=== PATIENT | female | born 1955 | race Caucasian/White ===

== ENCOUNTER 2024-05-24 12:46 | Outpatient (POV) | payer MEDICARE, SELFPAY ==
[2024-05-24 13:05] VITALS: BP 153/94; PULSE 95; RESP 18; O2SAT 98; BMI 32.5
--- NOTE | 2024-05-24 13:15 | A.OFFVIS_ITS ---
HPI Data of Consult Patient: new to practice Consult date: 05/24/24 Requesting Physician: Jo Alicea APRN Primary Care Provider: Joseph Almendarez MD Consult Narrative Reason for consult: Low back pain, leg pain History of present illness: She states that the Percocet medication really does not seem to work at all. Ms. Carmen is a 68 year old female who presents today as a new patient. She is a referral from [facility]. Today she rates her pain a 8 out of 10. Patient states that she has chronic back pain with radicular symptoms into her legs. Patient states this is been going on for years and progressively worsening. Patient describes it as an aching, throbbing sensation with numbness and tingling. Patient does state that she has had 3 prior knee replacements and that she has chronic pain in these joints as well. Patient states that she has done injection therapy for 15 to 20 years with significant improvement however now they seem like they are not lasting as long. Patient states that she just has chronic pain on a day-to-day basis that does interfere with her ability perf orm activities of daily living such as cooking and cleaning. Patient states the pain is severe and debilitating. Patient is interested in trying a pump trial. Patient states that she did have 1 about 6 years ago and it did seem to help but yet very short lived. Patient states that she did not have any reactions to that medication which was fentanyl however with fentanyl patches she was very si ck to her stomach. Patient has tried and failed conservative therapy including continued at home stretching exercise for longer than 12 weeks. Patient is currently managed with gabapentin 300 mg twice a day and Percocet 10 mg 4 times a day from outside providers. She states that the pain medication just is not really doing much of anything. Her Matt has been reviewed. CC: Jo Alicea APRN [facility] Disclaimer: The information contained in this section may have been updated after the patient was seen, as this information can be updated by other users. Medical History (Updated 05/24/24 @ 14:18 by Jo Alicea APRN) Diverticulitis GERD (gastroesophageal reflux disease) Anemia Asthma HTN (hypertension) Osteoporosis DDD (degenerative disc disease), lumbar Surgical History (Updated 05/24/24 @ 13:11 by Casi Delgado RN) Hx of total knee arthroplasty History of total hip replacement Hx of cholecystectomy H/O: hysterectomy Family History (Updated 05/24/24 @ 13:09 by Casi Delgado RN) Other Arthritis Cancer Diabetes Family history of thromboembolic disease Heart disease Hypertension Osteoporosis Rheumatoid arthritis Social History (Updated 05/24/24 @ 13:43 by Casi Delgado RN) Smoking Status: Never smoker alcohol intake: never current occupational status: other Travel in the last 8 weeks: None Review of Systems Review of Systems Review of systems:: pertinent systems reviewed and negative unless documented below Review of systems (narrative): Review of Systems: General: No recent weight changes, no fever, no sleep disturbances Respiratory: No cough, no shortness of air, no recurring pulmonary infections Cardiovascular/peripheral vascular: No chest pain, no palpitations, no edema, no shortness of breath Gastrointestinal: No new onset incontinence, normal bowel movements reported Genitourinary: No new onset incontinence Musculoskeletal: Low back pain, leg pain, bilateral knee pain Psychiatric: [Normal mood/affect] Neurological: [Denies weakness in extremities], [denies balance issues] Meds Home Medications and Allergies Home Medications ?Medication ?Instructions ?Recorded ?Confirmed ?Type baclofen 10 mg tablet 10 mg PO DAILY Pain 05/24/24 05/24/24 History gabapentin 300 mg capsule 300 mg PO DAILY Pain 05/24/24 05/24/24 History losartan 100 mg tablet 100 mg PO DAILY BLOOD PRESSURE 05/24/24 05/24/24 History meloxicam 7.5 mg tablet 7.5 mg PO BID ARHTIRITIS 05/24/24 05/24/24 History oxycodone-acetaminophen 10 mg-325 1 tab PO QID Pain 05/24/24 05/24/24 History mg tablet New Prescriptions to Start Prescriptions: Allergies Allergy/AdvReac Type Severity Reaction Status Date / Time acetaminophen [From Lortab] Allergy Hives Verified 05/24/24 13:12 erythromycin base Allergy Hives Verified 05/24/24 13:12 hydrocodone [From Lortab] Allergy Hives Verified 05/24/24 13:12 NSAIDS (Non-Steroidal Allergy Hives Verified 05/24/24 13:12 Anti-Inflamma Penicillins Allergy Hives Verified 05/24/24 13:12 Objective Narrative: Physical Exam: General: Alert and oriented x3, no acute distress, pleasant and cooperative Lungs: Respirations even and unlabored, symmetrical chest expansion Eyes: PERRL Musculoskeletal: Flexion and extension of lumbar [spine] somewhat guarded secondary to pain, [antalgic gait noted] Neurological: Speech clear, no gross sensory deficit Assessment and Plan *Assessment and plan (1) Lumbar radiculopathy: Status: Acute Category: Medical Code(s): M54.16 - Radiculopathy, lumbar region (2) Bilateral knee pain: Status: Acute Category: Medical Code(s): M25.561 - Pain in right knee; M25.562 - Pain in left knee (3) DDD (degenerative disc disease), lumbar: Status: Acute Category: Medical Code(s): M51.369 - Other intervertebral disc degeneration, lumbar region without mention of lumbar back pain or lower extremity pain Plan Patient continues to experience significant pain throughout her back as well as radicular symptoms. Patient did have limited range of motion of her lumbar spine. Patient has tried and failed conservative therapy including oral medications, heat and ice, topicals, physical therapy, continued at home stretching exercise for longer than 12 weeks as well as injection therapy. I did go over risk and benefits of the intrathecal pain pump and discussed that I do believe she would benefit from a intrathecal pain pump trial. Patient does states she would like to proceed forward with this plan of care. Patient was counseled that I will order her psychological evaluation and if she is deemed an appropriate candidate we will proceed forward with the pump trial at a later date. I will order the patient a compounded cream. Patient will return to clinic in 1 month for reevaluation of symptoms and plan of care. Patient has been instructed to contact the clinic with any concerns before the next appointment. Dr. Lao has reviewed this note and agrees with this plan of care. This note was dictated using voice recognition software and make contain errors or omissions. All injections are used with Lidocaine or Bupivacaine and Depo Medrol.
== END 2024-05-24 23:59 | disposition home or self-care (01) ==
LOC: SC.PAIN 12:52
PROVIDERS: PCP Family Medicine; Visit Provider Nurse Practitioner Family
DX: M25.561 Pain in right knee; M25.562 Pain in left knee; M51.16 Intervertebral disc disorders with radiculopathy, lumbar region; Z96.659 Presence of unspecified artificial knee joint; Z73.89 Other problems related to life management difficulty; Z96.649 Presence of unspecified artificial hip joint
CPT/HCPCS: 99202; G0463

== ENCOUNTER 2024-09-04 14:11 | Outpatient (POV) | payer MEDICARE, SELFPAY ==
--- NOTE | 2024-09-04 14:27 | EXP.PAIN.SOA ---
[facility] Disclaimer: The information contained in this section may have been updated after the patient was seen, as this information can be updated by other users. Medical History (Updated 09/04/24 @ 14:29 by Jo Alicea APRN) Diverticulitis GERD (gastroesophageal reflux disease) Anemia Asthma HTN (hypertension) Osteoporosis DDD (degenerative disc disease), lumbar Surgical History (Updated 05/24/24 @ 13:11 by Casi Delgado RN) Hx of total knee arthroplasty History of total hip replacement Hx of cholecystectomy H/O: hysterectomy Family History (Updated 05/24/24 @ 13:09 by Casi Delgado RN) Other Arthritis Cancer Diabetes Family history of thromboembolic disease Heart disease Hypertension Osteoporosis Rheumatoid arthritis Social History (Updated 05/24/24 @ 13:43 by Casi Delgado RN) Smoking Status: Never smoker alcohol intake: never current occupational status: other Travel in the last 8 weeks: None Have you lived/traveled outside [place] in past 30 days?: No Contact w/someone who lives/traveled outside [place] past 30 days?: No Exposure to someone with infectious disease in past 14 days?: No Do you have a fever (greater than 100.4 F or 38 C)?: No Have you tested positive for COVID-19: No Exposed to someone with COVID-19 in past 14 days?: No Do you have a sore throat?: No Do you have a cough?: No Do you have any weakness?: No Do you have any diarrhea?: No Are you experiencing any unusual bleeding?: No Do you have any muscle aches/pain?: No Do you have any abdominal pain?: No Are you experiencing loss of taste or smell?: No PM Subjective & Objective Subjective Subjective:: Patient is a pleasant 68-year-old female who presents today for follow-up of psychological evaluation. She does rate her pain today a 10 out of 10. She states she still has the chronic back pain that does radiate into her legs. She states that nothing seems to make any difference. She states that this has been going on for longer than 20 years and continues to worsen on a day-to-day basis. Patient states the pain is severe and debilitating. She has tried and failed conservative therapy including oral medications, heat and ice, topicals, physical therapy, at home stretching exercise for longer than 12 weeks as well as multiple injections. She has been prescribed anything from gabapentin, Percocet and fentanyl. She states nothing seems to do anything. Patient does state today that she would like to proceed forward with the pain pump trial. Her Matt has been reviewed and is appropriate. Review of Systems: General: No recent weight changes, no fever, no sleep disturbances Respiratory: No cough, no shortness of air, no recurring pulmonary infections Cardiovascular/peripheral vascular: No chest pain, no palpitations, no edema, no shortness of breath Gastrointestinal: No new onset incontinence, normal bowel movements reported Genitourinary: No new onset incontinence Musculoskeletal: Chronic back pain Psychiatric: [Normal mood/affect] Neurological: [Denies weakness in extremities], [denies balance issues] Pain at rest (0-10 scale): 10 Objective Objective:: Physical Exam: General: Alert and oriented x3, no acute distress, pleasant and cooperative Lungs: Respirations even and unlabored, symmetrical chest expansion Eyes: PERRL Musculoskeletal: Flexion and extension of lumbar [spine] somewhat guarded secondary to pain, [antalgic gait noted] Neurological: Speech clear, no gross sensory deficit Has patient had previous pain injection?: No Conservative treatment options previously tried: Home exercise plan Length of treatment: Longer than 12 weeks, Physical Therapy Length of treatment: Longer than 6 weeks and Prescription medications Length of treatment: Longer than 12 weeks Meds Home Medications and Allergies Home Medications ?Medication ?Instructions ?Recorded ?Confirmed ?Type baclofen 10 mg tablet 10 mg PO DAILY Pain 05/24/24 05/24/24 History gabapentin 300 mg capsule 300 mg PO DAILY Pain 05/24/24 05/24/24 History losartan 100 mg tablet 100 mg PO DAILY BLOOD PRESSURE 05/24/24 05/24/24 History meloxicam 7.5 mg tablet 7.5 mg PO BID ARHTIRITIS 05/24/24 05/24/24 History oxycodone-acetaminophen 10 mg-325 1 tab PO QID Pain 05/24/24 05/24/24 History mg tablet New Prescriptions to Start Prescriptions: Allergies Allergy/AdvReac Type Severity Reaction Status Date / Time acetaminophen (From Lortab) Allergy Hives Verified 05/24/24 13:12 erythromycin base Allergy Hives Verified 05/24/24 13:12 hydrocodone (From Lortab) Allergy Hives Verified 05/24/24 13:12 NSAIDS (Non-Steroidal Allergy Hives Verified 05/24/24 13:12 Anti-Inflamma Penicillins Allergy Hives Verified 05/24/24 13:12 Assessment and Plan *Assessment and plan (1) Lumbar radiculopathy: Status: Acute Category: Medical Code(s): M54.16 - Radiculopathy, lumbar region (2) DDD (degenerative disc disease), lumbar: Status: Acute Category: Medical Code(s): M51.369 - Other intervertebral disc degeneration, lumbar region without mention of lumbar back pain or lower extremity pain (3) Chronic pain syndrome: Status: Acute Category: Medical Code(s): G89.4 - Chronic pain syndrome Plan I did review over with the patient regarding her psychological evaluation and that she was deemed an appropriate candidate for the intrathecal pain pump trial. Risk and benefits of this procedure were explained to the patient and she would like to proceed forward with this plan. Patient has tried and failed conservative therapy including oral medication, heat and ice, topicals, physical therapy, at home stretching exercise for longer than 12 weeks that was physician guided as well as injection therapy. Patient has been tried on multiple oral pain medications with no additional improvement. We will submit to insurance for the intrathecal pain pump trial under fluoroscopy. We will send her to the [place] location for the pump trial and have her come back to us for follow-up. Patient acknowledges understanding agrees with plan of care. Patient has been instructed to contact the clinic with any concerns before the next appointment. Dr. Lao has reviewed this note and agrees with this plan of care. This note was dictated using voice recognition software and make contain errors or omissions. All injections are used with Lidocaine, Bupivacaine and Depo Medrol. Occasionally urine drug screen is needed to verify patient's compliance with our office pain contract. This is ordered based off specific treatments related to chronic pain with the potential to abuse certain medications.
[2024-09-04 14:52] VITALS: BP 181/100; PULSE 112; RESP 16; O2SAT 96; BMI 32.8
== END 2024-09-04 23:59 | disposition home or self-care (01) ==
LOC: SC.PAIN 14:11
PROVIDERS: PCP Family Medicine; Visit Provider Nurse Practitioner Family
DX: G89.4 Chronic pain syndrome (principal); M51.16 Intervertebral disc disorders with radiculopathy, lumbar region; Z96.659 Presence of unspecified artificial knee joint; Z96.649 Presence of unspecified artificial hip joint
CPT/HCPCS: 99212; G0463